=== PATIENT | male | born 1975 | race Caucasian/White ===

== ENCOUNTER 2017-01-26 00:10 | Emergency (ER) | payer MEDICAID, OTHER ==
[2017-01-26] MEDS ORDERED: OXYCODONE/APAP 5/325 TAB PO ONE (00:18)
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
[2017-01-26 00:30] VITALS: BP 130/102; PULSE 89; RESP 18; TEMP 98.4; O2SAT 93
[2017-01-26] MEDS ORDERED: HYDROCOD/APAP 5/325 PREPACK#6 BTL TAKEHOME ONE (00:40)
== END 2017-01-26 01:01 | disposition home or self-care (01) ==
LOC: EDUNIT#
DX: S83.411A Sprain of medial collateral ligament of right knee, initial encounter (principal); W51.XXXA Accidental striking against or bumped into by another person, initial encounter